=== PATIENT | male | born 1955 | race Caucasian/White ===

== ENCOUNTER 2016-11-28 15:56 | Day surgery (SDC) | payer OTHER ==
[~2016-11-28] VITALS: Ht 167.6 cm; Wt 64.8 kg
[2016-11-28 17:30] VITALS: Ht 167.6 cm; Wt 64.8 kg
[2016-11-28] MEDS ORDERED: ATORVASTATIN PO (17:44)
[2016-11-28] MEDS ORDERED: GLIPIZIDE PO (17:44)
[2016-11-28] MEDS ORDERED: METFORMIN PO (17:44)
[2016-11-28] MEDS ORDERED: METOPROLOL PO (17:44)
[2016-11-28] MEDS ORDERED: ASPI-535 PO (17:44)
[2016-11-28] MEDS ORDERED: ZETIA PO (17:44)
[2016-11-28 17:48] VITALS: BP 130/73; PULSE 58; RESP 12
[2016-11-28] MEDS ORDERED: FENTAnyl 50 MCG/ML VIAL ONE (18:55)
[2016-11-28] MEDS ORDERED: MIDAZOLAM 1 MG/ML 2 ML INJ ONE (18:55)
[2016-11-28 19:00] VITALS: BP 122/58; PULSE 58; RESP 20
--- NOTE | 2016-11-29 03:27 | GILP ---
DATE OF PROCEDURE: 11/28/2016 NAME OF PROCEDURES: 1. Esophagogastroduodenoscopy and biopsy. 2. Colonoscopy. SURGEON: Bassam Mclaughlin MD PREOPERATIVE DIAGNOSES: 1. Abdominal pain. 2. Change in the bowel habit. POSTOPERATIVE DIAGNOSES: 1. Gastritis. 2. Gastric mucosal biopsies were taken for Helicobacter pylori test. 3. Colonoscopy all the way to the cecum. 4. Poor prep making the exam suboptimal. 5. Internal hemorrhoids. 6. No gross neoplasm was identified. INDICATION FOR THE PROCEDURE: Mr. Elvin Manjarrez is a 61-year-old male patient who had upper abdomina l pain, not responding to therapy. The patient also noticed a change in the bowel habit. He never had screening colonoscopy, so the patient was scheduled for endoscopy and colonoscopy for further ev aluation. The procedures and possible complications are well explained to the patient and the family, and cons ent was obtained. DESCRIPTION OF PROCEDURE: Under the influence of fentanyl and Versed, the gastroscope was carefully introduced into the esophagus, and under direct vision, it was advanced to the stomach and through the pylorus into the duodenal bulb and descending duodenum. FINDINGS: ESOPHAGUS: The mucosa was normal. STOMACH: The patient had gastritis. Gastric mucosal biopsies were taken for H. pylori test. DUODENUM: Normal. The colonoscope was carefully introduced in the rectum, and under direct vision, it was advanced all the way to the cecum. FINDINGS: The patient had internal hemorrhoids. He had poor prep making the exam suboptimal. No g ross neoplasm was identified. He tolerated the procedures very well, and there was no complication from the procedures. At the en d of the procedures, he was awake with stable vital signs and he was discharged home to the care of his family. IMPRESSION: 1. Gastritis. 2. Gastric mucosal biopsies were taken for Helicobacter pylori test. 3. Colonoscopy all the way to the cecum. 4. Poor prep making the exam suboptimal. 5. Internal hemorrhoids. 6. No gross neoplasm was identified. PLAN: 1. Omeprazole 40 mg p.o. q. a.m. 2. Would recommend repeat colonoscopy with better preparation in 1 to 2 years. Dictated By: BASSAM DUVAL/KATIA Conf#: [id number] DID#: [id number]
== END 2016-11-28 19:21 | disposition home or self-care (01) ==
LOC: GIL 15:56
PROVIDERS: ATTEND Internal Medicine Gastroenterology
DX: Z12.11 Encounter for screening for malignant neoplasm of colon (principal); B96.81 Helicobacter pylori [H. pylori] as the cause of diseases classified elsewhere; K29.70 Gastritis, unspecified, without bleeding; K64.8 Other hemorrhoids; E11.9 Type 2 diabetes mellitus without complications; I10 Essential (primary) hypertension
CPT/HCPCS: 43239; 45378; 82962; 87081; J2250; J3010; Z7610

== ENCOUNTER 2017-05-04 11:56 | Emergency (ER) | payer OTHER ==
[~2017-05-04] VITALS: Ht 172.7 cm; Wt 66.0 kg
[~2017-05-04 11:56] MED LIST: ASPI-535 PO; ATORVASTATIN PO; GLIPIZIDE PO; METFORMIN PO; METOPROLOL PO; ZETIA PO
[2017-05-04 11:58] VITALS: Ht 172.7 cm; Wt 66.0 kg
[2017-05-04] MEDS ORDERED: IBUPROFEN 600 MG TAB PO STA (12:25)
[2017-05-04] MEDS ORDERED: LOSA50TA6 PO (12:49)
[2017-05-04] MEDS ORDERED: ESCI5TAB10 PO (12:49)
[2017-05-04] MEDS ORDERED: TICA90TA PO (12:49)
[2017-05-04 12:51] LABS: BASOPHILS % 0.9 % (0.0-2.0); EOSINOPHILS % 0.3 % (0.0-7.0); HEMATOCRIT 34.7 % (42.0-52.0); HEMOGLOBIN 11.5 g/dl (14.0-18.0); LYMPHOCYTES # 0.7 10^3/ul (0.8-2.9); LYMPHOCYTES % 19.9 % (15.0-51.0); MEAN CORPUSCULAR HEMOGLOBIN 27.7 pg (29.0-33.0); MEAN CORPUSCULAR HGB CONC 33.1 g/dl (32.0-37.0); MEAN CORPUSCULAR VOLUME 83.6 fl (82.0-101.0); MEAN PLATELET VOLUME 10.1 fl (7.4-10.4); MONOCYTE # 0.7 10^3/ul (0.3-0.9); MONOCYTES % 21.1 % (0.0-11.0); NEUTROPHIL # 1.9 10^3/ul (1.6-7.5); NEUTROPHILS % 56.9 % (39.0-77.0); PLATELET COUNT 185 10^3/UL (140-415); RED BLOOD COUNT 4.15 10^6/ul (4.70-6.10); RED CELL DISTRIBUTION WIDTH 12.8 % (11.5-14.5); WHITE BLOOD COUNT 3.3 10^3/ul (4.8-10.8)
[2017-05-04] MEDS ORDERED: ACET325T33 PO (12:55)
[2017-05-04 13:20] LABS: ALBUMIN 3.8 g/dl (3.3-4.9); ALBUMIN/GLOBULIN RATIO 1.18; BILIRUBIN,INDIRECT 0.1 mg/dl (0-1.1); BILIRUBIN,TOTAL 0.1 mg/dl (0.2-1.3); CALCIUM 8.4 mg/dl (8.4-10.2); CREATININE 0.68 mg/dl (0.61-1.24); POTASSIUM 4.3 mmol/L (3.5-5.1)
[2017-05-04] MEDS ORDERED: SOD CHLORIDE 0.9% 1,000 ML IV STA (13:29)
--- NOTE | 2017-05-04 13:45 | ERD ---
ER Documentation Chief Complaint Date/Time DATE: 05/04/17 TIME: 13:44 Chief Complaint FEVER , BODY ACHE X 2 DAYS HPI 61 year old male presents to the ED complaining of fatigue and having "fever inside body" for two days. He states his throat feels dry. He denies chest pain , shortness of breath, cough, abdominal pain. He states he took Tylenol ROS All systems reviewed and are negative except as per history of present illness. Medications Home Meds Active Scripts Acetaminophen* (Tylenol*) 325 Mg Tablet, 2 TAB PO Q4 Y for PAIN AND OR ELEVATED TEMP, #30 TAB Prov:MALIHA LOPEZ PA-C 05/04/17 Reported Medications Ticagrelor* (Brilinta*) 90 Mg Tablet, 90 MG PO Q12, TAB 05/04/17 Escitalopram Oxalate* (Escitalopram Oxalate*) 5 Mg Tablet, 5 MG PO DAILY, #30 TAB 05/04/17 Losartan Potassium* (Losartan Potassium*) 50 Mg Tablet, 50 MG PO DAILY, TAB 05/04/17 Aspirin Ec (Aspir 81) 81 Mg Tablet.dr, 81 MG PO DAILY, #30 TAB 11/28/16 [Atorvastatin] No Conflict Check, PO DAILY 11/28/16 [Zetia] No Conflict Check, PO DAILY 11/28/16 [Glipizide] 10 No Conflict Check, 10 MG PO DAILY 11/28/16 [Metformin] No Conflict Check, 1000 MG PO DAILY 11/28/16 [Metoprolol] No Conflict Check, PO DAILY 11/28/16 Allergies Allergies: Coded Allergies: No Known Allergy (Unverified , 11/28/16) PMhx/Soc History of Surgery: Yes (CARDIAC STENT 1.5 YRS AGO) Anesthesia Reaction: No Hx Neurological Disorder: No Hx Respiratory Disorders: No Hx Cardiac Disorders: Yes (HTN) Hx Psychiatric Problems: No Hx Miscellaneous Medical Probl: Yes (HIGH CHOLESTEROL) Hx Alcohol Use: No Hx Substance Use: No Hx Tobacco Use: No Physical Exam Vitals Vital Signs Date Time Temp Pulse Resp B/P Pulse Ox O2 Delivery O2 Flow Rate FiO2 05/04/17 11:58 99.0 79 18 112/56 98 Physical Exam Const: WD/WN, well-appearing Head: Atraumatic Eyes: Normal Conjunctiva ENT: Normal External Ears, Nose and Mouth. Neck: Full range of motion..~ No meningismus. Resp: Clear to auscultation bilaterally Cardio: Regular rate and rhythm, no murmurs Abd: Soft, non tender, non distended. Normal bowel sounds Skin: No petechiae or rashes Back: No midline or flank tenderness Ext: No cyanosis, or edema Neur: Awake and alert Psych: Normal Mood and Affect Result Diagram: 05/04/17 1242 05/04/17 1242 Results 24 hrs Laboratory Tests Test 05/04/17 12:42 White Blood Count 3.310^3/ul Red Blood Count 4.1510^6/ul Hemoglobin 11.5g/dl Hematocrit 34.7% Mean Corpuscular Volume 83.6fl Mean Corpuscular Hemoglobin 27.7pg Mean Corpuscular Hemoglobin Concent 33.1g/dl Red Cell Distribution Width 12.8% Platelet Count 14648^3/UL Mean Platelet Volume 10.1fl Neutrophils % 56.9% Lymphocytes % 19.9% Monocytes % 21.1% Eosinophils % 0.3% Basophils % 0.9% Nucleated Red Blood Cells % 0.0/100WBC Neutrophils # 1.910^3/ul Lymphocytes # 0.710^3/ul Monocytes # 0.710^3/ul Eosinophils # 0.010^3/ul Basophils # 0.010^3/ul Nucleated Red Blood Cells # 0.010^3/ul Sodium Level 129mmol/L Potassium Level 4.3mmol/L Chloride Level 97mmol/L Carbon Dioxide Level 24mmol/L Anion Gap 12 Blood Urea Nitrogen 13mg/dl Creatinine 0.68mg/dl Glucose Level 306mg/dl Calcium Level 8.4mg/dl Total Bilirubin 0.1mg/dl Direct Bilirubin 0.00mg/dl Indirect Bilirubin 0.1mg/dl Aspartate Amino Transf (AST/SGOT) 25IU/L Alanine Aminotransferase (ALT/SGPT) 43IU/L Alkaline Phosphatase 64IU/L Total Protein 7.0g/dl Albumin 3.8g/dl Globulin 3.20g/dl Albumin/Globulin Ratio 1.18 Lipase 91U/L Current Medications Medications (Trade) Dose Ordered Sig/Rafael Route PRN Reason Start Time Stop Time Status Last Admin Dose Admin Ibuprofen 600 mg 600 mg ONCE STAT PO 05/04/17 12:25 05/04/17 12:26 DC 05/04/17 12:42 Sodium Chloride (NS) 1,000 ml @ 1,000 mls/hr Q1H STAT IV 05/04/17 13:29 05/04/17 14:28 05/04/17 13:45 Procedures/MDM 61 year old male presents to the ED complaining of fatigue for two days. On examination, patient is well-appearing and afebrile. Lab work was drawn, patient was found to have mild hyponatremia and was given 1 liter of normal saline fluids. CXR did not show any evidence of infiltrates, pneumothorax, pleural fusion. Patient is stable to be discharged home to follow-up with PCP Departure Diagnosis: Primary Impression: Fatigue Condition: Stable Patient Instructions: Generalized Weakness, Uri, Viral, No Abx (Adult), Weakness, Unk Cause Additional Instructions: Visite a saul markell magaña para un EXAMEN.Regrese a estas instalaciones si no se mejora chris esperbamos o chris le dijimos. Regrese a estas instalaciones si no se mejora chris esperbamos o chris le dijimos. [place] toda la medicina le y chris se le indic. MALIHA LOPEZ PA-C May 04, 2017 13:45
--- NOTE | 2017-05-04 14:08 | RADRPT ---
PROCEDURE: XR Chest. CLINICAL INDICATION: Fatigue TECHNIQUE: Single frontal view of the chest was obtained COMPARISON: None FINDINGS: No pleural effusion or pneumothorax. No consolidation. Unremarkable cardiomediastinal silhouette. No acute osseous abnormality. IMPRESSION: No acute cardiopulmonary disease. RPTAT: EE Jose Billings Physician Date Time Electronically viewed and signed by Jose Billings Physician on 05/04/2017 14:08 /
== END 2017-05-04 15:36 | disposition home or self-care (01) ==
LOC: FTE 11:56
DX: R53.83 Other fatigue (principal); I10 Essential (primary) hypertension; Z79.82 Long term (current) use of aspirin; Z79.84 Long term (current) use of oral hypoglycemic drugs; Z98.61 Coronary angioplasty status
CPT/HCPCS: 71010; 80053; 83690; 85025; J7030; Z7502; Z7610